=== PATIENT | female | born 1955 | race Caucasian/White ===

== ENCOUNTER 2017-02-21 06:52 | Outpatient (CLI) | payer MEDICARE | END 2017-02-21 06:53 | disposition home or self-care (01) | LOC: BICULT 06:52 | PROVIDERS: ATTEND Family Medicine | DX: E04.9 Nontoxic goiter, unspecified (principal); E04.2 Nontoxic multinodular goiter | CPT/HCPCS: 76536 ==

== ENCOUNTER 2017-04-25 09:36 | Outpatient (CLI) | payer OTHER | END 2017-04-25 09:37 | disposition home or self-care (01) | LOC: BICULT 09:36 | PROVIDERS: ATTEND Family Medicine | DX: E04.9 Nontoxic goiter, unspecified (principal); E04.2 Nontoxic multinodular goiter | CPT/HCPCS: 76536 ==

== ENCOUNTER 2017-05-13 16:29 | Outpatient (CLI) | payer MEDICARE ==
[2017-05-13] MEDS ORDERED: Gadobenate Dimeglumine 529 MG/1 ML (20ML VIAL) ONE (17:00)
--- NOTE | 2017-05-13 22:22 | MRI ---
MRI NECK SOFT TISSUES WITH AND WITHOUT CONTRAST: 05/13/17 HISTORY: 61-year-old female with dysphagia. ICD-10: R13.10, and soft tissue right neck mass. TECHNIQUE: Two vitamin E pills were placed in the vicinity of the palpable masses in the right upper neck. Multi planar, multisequence MR of the neck was performed, pre and post IV injection of 18 mL of Multihance gadolinium based contrast agent. FINDINGS: At C5-6, there is a central and left paracentral disc herniation that indents the ventral surface of the spinal cord. At C6-7, there is a right paracentral small focal disc herniation. The current MRI w as not optimized to evaluate the cervical spine. There are at least two mildly enlarged right sided c ervical lymph nodes. One of them is 1.7 x 1 x 2 cm right jugulodigastric level II lymph node. The oth er one, located posterior to that, is another level II lymph node that measures approximately 0.8 x 1 .2 x 1.2 cm. They both exhibit moderate rim enhancement, but there is no surrounding edema. There is a slightly prominent contralateral left level II jugulodigastric lymph node. There are also slightly enlarged level Ib lymph nodes. Other than these lymph nodes, no definite pathology is identified, inv olving the posterior cervical, retropharyngeal, perivertebral, parapharyngeal, parotid, carotid, subm andibular, and visceral, spaces, No major pathology identified involving the larynx or the pharyngeal mucosal space. IMPRESSION: 1) Mildly enlarged right sided level II cervical lymph nodes, with increased enhancement. This i s nonspecific, and is it is uncertain whether these are reactive/inflammatory or neoplastic lymph nod es. 2) Small cervical disc herniations. POS: [facility]
== END 2017-05-13 16:30 | disposition home or self-care (01) ==
LOC: MRI 16:29
PROVIDERS: ATTEND Family Medicine
DX: R13.10 Dysphagia, unspecified (principal); M50.20 Other cervical disc displacement, unspecified cervical region
CPT/HCPCS: 70543; A9579

== ENCOUNTER 2017-07-16 08:54 | Outpatient (CLI) | payer MEDICARE ==
--- NOTE | 2017-07-17 16:26 | RAD ---
MODIFIED BARIUM SWALLOW: CLINICAL INDICATIONS: Dysphagia, unspecified. Feeding difficulties. TECHNIQUE: Interpretation performed without benefit of real-time assessment. FINDINGS: There is no laryngeal penetration or tracheal aspiration. There is evidence of vallecular pooling du ring the exam. IMPRESSION: No laryngeal penetration or tracheal aspiration. Reference speech pathology report for further details. POS: [facility]
== END 2017-07-16 08:55 | disposition home or self-care (01) ==
PROVIDERS: ATTEND Internal Medicine
DX: I69.191 Dysphagia following nontraumatic intracerebral hemorrhage (principal); K21.9 Gastro-esophageal reflux disease without esophagitis; R63.3 Feeding difficulties
CPT/HCPCS: 74230; G8996-GN-CI; G8997-GN-CI; G8998-GN-CI

== ENCOUNTER 2018-01-30 10:05 | Outpatient (CLI) | payer MEDICARE | END 2018-01-30 10:06 | disposition home or self-care (01) | LOC: BICMAMMO 10:05 | PROVIDERS: ATTEND Family Medicine | DX: Z12.31 Encounter for screening mammogram for malignant neoplasm of breast (principal); R92.1 Mammographic calcification found on diagnostic imaging of breast; Z80.3 Family history of malignant neoplasm of breast | CPT/HCPCS: 77063; 77067 ==

== ENCOUNTER 2018-02-09 09:31 | Outpatient (CLI) | payer MEDICARE | END 2018-02-09 09:32 | disposition home or self-care (01) | LOC: BICMAMMO 09:31 | PROVIDERS: ATTEND Family Medicine | DX: R92.1 Mammographic calcification found on diagnostic imaging of breast (principal); Z80.3 Family history of malignant neoplasm of breast | CPT/HCPCS: 77065; G0279 ==

== ENCOUNTER → 2018-02-11 | Day surgery (SDC) | payer MEDICARE ==
--- NOTE | 2018-02-11 09:17 | MMO ---
STEREOTACTIC BREAST BIOPSY: HISTORY: Left breast calcifications. COMPARISON: Mammogram from 02/09/2018. TECHNIQUE/FINDINGS: The patient was brought to the stereo suite. All questions were answered. The patient's left breast was prepped and draped in the normal sterile fashion. Informed consent was obtained. A time out was performed. Approximately 3 mL of buffered Lidocaine was instilled into the superficial and deep soft tissues. A fter adequate anesthesia, a small dermatotomy was made. The stereotactic 10 gauge needle was inserte d into the breast. The needle was deployed, and a total of six 10-gauge cores were obtained. A clip was placed in the a dequate position. The specimen mammogram demonstrated adequate calcifications within the specimen. IMPRESSION: Technically successful stereotactic-guided left breast biopsy. POS: [facility]
--- NOTE | 2018-02-11 09:26 | MMO ---
SURGICAL SPECIMEN MAMMOGRAM: HISTORY: Calcifications. COMPARISON: Mammogram from 02/09/2018. FINDINGS: There are adequate calcifications obtained within the specimen. IMPRESSION: Adequate calcifications in the specimen. POS: [facility]
--- NOTE | 2018-02-11 09:27 | MMO ---
POST CLIP MAMMOGRAM: HISTORY: Clip placement. COMPARISON: 01/30/2018 FINDINGS: There is satisfactory position of the left breast clip. There is removal of the calcifications. IMPRESSION: Satisfactory post clip placement. POS: [facility]
== END ==
LOC: MAMMO 06:48
PROVIDERS: ATTEND Family Medicine
PROC: 0HBU3ZX Excision of Left Breast, Percutaneous Approach, Diagnostic (ICD-10-PCS; principal; 2018-02-11)
DX: N60.82 Other benign mammary dysplasias of left breast (principal)
CPT/HCPCS: 19283; 76098; 88305

== ENCOUNTER 2019-08-22 13:09 | Emergency (ER) | payer MEDICARE ==
[2019-08-22] MEDS ORDERED: Fentanyl 100 MCG/2 ML VIAL ONE (13:14)
[2019-08-22] MEDS ORDERED: Ondansetron PF 4 MG/2 ML Vial ONE ×2 (13:14→14:08)
[2019-08-22] MEDS ORDERED: Iopamidol-370 76% 500 ML 1 ML ONE (14:19)
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
== END 2019-08-22 15:11 | disposition home or self-care (01) ==
LOC: ERS 13:09
DX: S20.219A Contusion of unspecified front wall of thorax, initial encounter (principal); E78.5 Hyperlipidemia, unspecified; K21.9 Gastro-esophageal reflux disease without esophagitis; Z79.899 Other long term (current) drug therapy; Z79.51 Long term (current) use of inhaled steroids; V49.9XXA Car occupant (driver) (passenger) injured in unspecified traffic accident, initial encounter
CPT/HCPCS: 71260; 74177; 93005; 96374; 96375; G0390; J2405; J3010; Q9967

== ENCOUNTER 2019-11-25 08:29 | Outpatient (CLI) | payer MEDICARE ==
--- NOTE | 2019-11-25 09:09 | MMO ---
Bilateral MAMMO Bilat Screen [facility]. CLINICAL HISTORY: Patient is 63 years old and is seen for screening. The patient has no personal history of cancer. VIEWS: The views performed were: bilateral craniocaudal with tomosynthesis and bilateral mediolateral oblique with tomosynthesis. FILMS COMPARED: The present examination has been compared to prior imaging studies performed at [facility] on 01/30/2018 and 02/09/2018, and at [facility] on 02/11/2018. This study has been interpreted with the assistance of computer-aided detection. MAMMOGRAM FINDINGS: There are scattered fibroglandular densities. Finding 1: There are stable benign appearing calcifications seen in both breasts. Finding 2: There is a biopsy clip seen in the left breast. Associated asymmetry on CC without abnormality on MLO, compatible with post biopsy change. There are no suspicious masses, suspicious calcifications, or new areas of architectural distortion. IMPRESSION: THERE IS NO MAMMOGRAPHIC EVIDENCE OF MALIGNANCY. A ROUTINE FOLLOW-UP MAMMOGRAM IN 1 YEAR IS RECOMMENDED. THE RESULTS OF THIS EXAM WERE SENT TO THE PATIENT. ACR BI-RADS Category 2 - Benign finding MAMMOGRAPHY NOTE: 1. A negative mammogram report should not delay a biopsy if a dominant of clinically suspicious mass is present. 2. Approximately 10% to 15% of breast cancers are not detected by mammography. 3. Adenosis and dense breasts may obscure an underlying neoplasm. Reported by: FREDERICK HAM MD Electonically Signed: [id number]
== END 2019-11-25 08:30 | disposition home or self-care (01) ==
LOC: BICMAMMO 08:29
PROVIDERS: ATTEND Family Medicine
DX: Z12.31 Encounter for screening mammogram for malignant neoplasm of breast (principal)
CPT/HCPCS: 77063; 77067